=== PATIENT | male | born 1940 | race Hispanic/Latino ===

== ENCOUNTER 2018-04-14 19:17 | Observation (INO) | payer BC, MEDICARE ==
--- NOTE | 2018-04-14 20:52 | ED PDOC ---
HPI: Trauma/Fall - HPI Time Seen by Provider: 04/14/18 20:01 Chief Complaint (Nursing): Trauma Chief Complaint (Provider): Trauma History Per: EMS History/Exam Limitations: clinical condition Onset/Duration Of Symptoms: Sudden Onset Injury Occurred (Timing): Just Before Arrival Additional Complaint(s): 77 year old male arrives to ED via EMS for an evaluation of a fall with possible head injury prior to arrival. History is limited as patient is a poor historian. Per EMS, patient has Hx of alcohol abuse and fell a couple days ago and wanted to be evaluated today. As per patient, he reports he fell a few weeks ago but did not seek medical attention at the time, however, his neighbors encouraged him to come to ED, prompting today's visit. Patient gives vague details about fall, stating that he jumped on an item he cannot recall subsequently falling backwards. He is uncertain if he lost consciousness or sustained a head injury at the time. PCP: Dr. Rory Vega Past Medical History Reviewed: Nursing Documentation, Vital Signs Vital Signs: Last Vital Signs Temp 98.4 F 04/14/18 19:28 Pulse 116 H 04/14/18 19:28 Resp 20 04/14/18 19:28 BP 172/85 H 04/14/18 19:28 Pulse Ox 98 04/14/18 19:28 - Medical History PMH: Arthritis, HTN, Hyperlipidemia, Chronic Kidney Disease - Family History Family History: States: Unknown Family Hx - Home Medications Home Medications: Ambulatory Orders Medication Instructions Recorded Atenolol 50 mg PO DAILY 04/14/18 RX: Valsartan [Diovan] 80 mg PO DAILY 04/14/18 levETIRAcetam [Keppra] 500 mg PO DAILY 04/14/18 - Allergies Allergies/Adverse Reactions: Allergies Allergy/AdvReac Type Severity Reaction Status Date / Time No Known Allergies Allergy Verified 04/14/18 19:27 Review of Systems Review Of Systems: ROS cannot be obtained secondary to pt's inabilty to answer questions. Physical Exam - Reviewed Nursing Documentation Reviewed: Yes Vital Signs Reviewed: Yes - Physical Exam Appears: Positive for: No Acute Distress Head Exam: Positive for: ATRAUMATIC, NORMAL INSPECTION, NORMOCEPHALIC Skin: Positive for: Normal Color Eye Exam: Positive for: EOMI, Normal appearance, PERRL ENT: Positive for: Normal ENT Inspection Neck: Positive for: Normal Cardiovascular/Chest: Positive for: Regular Rate, Rhythm Respiratory: Positive for: Normal Breath Sounds. Negative for: Respiratory Distress Gastrointestinal/Abdominal: Positive for: Normal Exam Back: Positive for: Vertebral Tenderness (lumbar diffusely). Negative for: Decreased ROM, Other (step-off, ecchymosis, or pressure ulcers) Extremity: Positive for: Normal ROM (upper/lower). Negative for: Deformity Neurologic/Psych: Positive for: Alert, Mood/Affect (dishelved). Negative for: Oriented (to time), Motor/Sensory Deficits, Aphasia - Laboratory Results Result Diagrams: 04/15/18 05:40 04/15/18 05:40 - ECG O2 Sat by Pulse Oximetry: 98 (RA) Pulse Ox Interpretation: Normal Medical Decision Making Medical Decision Making: Initial Impression: Back injury, possible head injury s/p fall Differential Diagnosis: Dehydration, AMS Initial Plan: * CT head without contrast * CT lumbar without contrast * Labs * XR pelvis Time: 2039 --Patient's daughter, Sierra, arrives at bedside from [place] to provide additional medical history. 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 She reports that patient was walking to a deli to purchase alcohol when neighbors witnessed him fall in the hallway, prompting 911 call. Patient additionally had a fall a few weeks ago, as well. Time: 2224 --CT lumbar spine Findings: The lumbar vertebral bodies are in satisfactory positioning and alignment. No fractures or dislocations are demonstrated. Intervertebral disc spaces are moderately narrowed at all levels. Disc osteophyte complexes and disc bulges are seen at all levels from L2 through S1 There is no evidence of facet subluxation. The neural foramen appear grossly patent. The spinal canal demonstrates normal caliber and contour without evidence of spinal stenosis. The surrounding soft tissues are within normal limits. Impression: 1. No acute fracture or traumatic injury. 2. Multilevel degenerative disc disease with spondylosis throughout the lumbar spine as described. 3. Disc osteophyte complexes and disc bulges at L2/L3, L3/L4, L4/L5, and L5/S1. No evidence of central canal stenosis. Time: 2233 --CT brain FINDINGS: there is been further maturation of the left temporal occipital infarct since the study of 07/06/15. No acute intracranial hemorrhage, midline shift, or mass effect VENTRICLES: No hydrocephalus. ORBITS: The orbits are unremarkable. SINUSES AND MASTOIDS: The paranasal sinuses and mastoid air cells are clear. BONES: No fracture. SOFT TISSUES: Unremarkable. MISCELLANEOUS: CT of the head Protocol: Multiple axial CT images obtained with 5 mm slice thickness were obtained through the head without administration of contrast. DLP 903.33 IMPRESSION: 1. CT of the head 2. Headache. 3. Protocol: Multiple axial CT images obtained with 5 mm slice thickness were obtained through the head without administration of contrast. DLP 903.33 4. Findings: there is been further maturation of the left temporal occipital infarct since the study of 07/06/15. 5. No acute intracranial hemorrhage, midline shift, or mass effect Scribe Attestation: Documented by Cristy Kenny, acting as a scribe for Marie Elliott MD. Provider Scribe Attestation: All medical record entries made by the Scribe were at my direction and personally dictated by me. I have reviewed the chart and agree that the record accurately reflects my personal performance of the history, physical exam, me dical decision making, and the department course for this patient. I have also personally directed, reviewed, and agree with the discharge instructions and disposition. Disposition - Clinical Impression Clinical Impression: ARF (acute renal failure), Dehydration, UTI (urinary tract infection) - Patient ED Disposition Is Patient to be Admitted: Yes Discussed With : Cici Dee Doctor Will See Patient In The: ED Counseled Patient/Family Regarding: Studies Performed, Diagnosis - Disposition Disposition Time: 22:45 Condition: FAIR - Pt Status Changed To: Hospital Disposition Of: Observation - POA Present On Arrival: Falls Or Trauma
[2018-04-14 21:18] LABS: BASO # 0.1 K/uL (0.0-0.2); BASO % 0.8 % (0.0-2.0); EOS % 0.5 % (0.0-4.0); HEMOGLOBIN 12.9 g/dL (12.0-18.0); LYMPH % 12.5 % (20.0-40.0); MEAN CELL VOLUME 100.1 fl (80.0-94.0); MEAN CORPUSCULAR HEMOGLOBIN 33.3 pg (27.0-31.0); MEAN CORPUSCULAR HGB CONC 33.3 g/dL (33.0-37.0); MEAN PLATELET VOLUME 7.6 fl (7.2-11.7); MONO # 0.6 K/uL (0.0-0.8); MONO % 7.9 % (0.0-10.0); NEUT # 6.2 K/uL (1.8-7.0); NEUT % 78.3 % (50.0-75.0); RBC 3.86 Mil/uL (4.40-5.90); RED CELL DISTRIBUTION WIDTH 13.6 % (11.5-14.5); WHITE BLOOD COUNT 7.9 K/uL (4.8-10.8)
[2018-04-14] MEDS ORDERED: Multivitamin (MVI) 10 ML, Thiamine 100 MG, Folic Acid 1 MG in Dextrose 5%/0.45% NS 1,00... IV ONE (21:27)
[2018-04-14 21:45] LABS: SQUAMOUS EPITHIAL < 1 /hpf (0-5); URINE BACTERIA MANY (<OCC); URINE BILIRUBIN NEGATIVE (NEGATIVE); URINE BLOOD NEGATIVE (NEGATIVE); URINE CLARITY CLOUDY (Clear); URINE COLOR YELLOW (YELLOW); URINE GLUCOSE (UA) NEG (Normal); URINE LEUKOCYTE ESTERASE LARGE Leu/uL (Negative); URINE PROTEIN NEGATIVE (NEGATIVE)
[2018-04-14 21:48] LABS: CALCIUM 9.9 mg/dL (8.4-10.2)
[2018-04-14] MEDS ORDERED: cefTRIAXone (Rocephin) 1 gm Inj ONE (23:21)
--- NOTE | 2018-04-14 23:26 | CP.PCM.HP ---
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 Per daughter present by bedside, pt experienced a fall earlier today, he was seen by his neighbors falling in the hallway and found to be sitting down after ground level fall. Per pt, he did not obtain any trauma to the head or pass out. Of note, pt has had multiple episodes of fall in the past, mostly recently fell 2 weeks ago, was found by son on the floor of his bathroom. Pt lives by himself, children check up on him at times, per daughter pt gets meal on wheels and goes to the grocery store to get food but regularly misses meals, chronic ETOH use (daily). Pt endorsing low back pain, moderate, non-radiating. Denies chest pain, dyspnea, palpatations, abdominal pain, n/v/d/c, dysuria, chills and fevers. PMHx: HTN, HLD, dementia CVA x 2 (hemorrhagic stroke in the past) SurgHx: Denies FHx: hx of HTN in family SHx: ETOH daily for 40+yrs (currently 3+beers/wine daily), hx of smoking (50+yrs, quit 20 yrs ago), denies illicit drug use Allergies: NKDA Daughter by bedside, Little Balbuena RN lives in [place] Son lives in [place], but on Vacation in [place]. Son has power of [employer] Full code Present on Admission - Present on Admission Any Indicators Present on Admission: No Review of Systems - Constitutional Constitutional: absent: Chills, Fever - Cardiovascular Cardiovascular: absent: Chest Pain, Dyspnea - Respiratory Respiratory: absent: Cough, Dyspnea - Gastrointestinal Gastrointestinal: absent: Abdominal Pain, Diarrhea, Nausea, Vomiting - Genitourinary Genitourinary: absent: Dysuria, Urinary Frequency - Musculoskeletal Musculoskeletal: Back Pain Past Patient History - Past Medical History & Family History Past Medical History?: Yes - Past Social History Smoking Status: Former Smoker Alcohol: > 2 Drinks/Day Drugs: Denies Home Situation {Lives}: Alone - CARDIAC Hx Hypertension: Yes - PULMONARY Hx Respiratory Disorders: No - NEUROLOGICAL Hx Neurological Disorder: Yes HX Cerebrovascular Accident: Yes (Multiple, 1 hemmorhagic 8 yrs ago) Hx Seizures: Yes (secondary to ETOH withdrawl (per daughter)) Other/Comment: Hx Wernicke Encephalopathy - HEENT Hx HEENT Problems: Yes Hx Cataracts: Yes - RENAL Hx Chronic Kidney Disease: Yes - ENDOCRINE/METABOLIC Hx Endocrine Disorders: No - HEMATOLOGICAL/ONCOLOGICAL Hx Blood Disorders: No - INTEGUMENTARY Hx Dermatological Problems: Yes Other/Comment: Hx Sacral Pressure sore - MUSCULOSKELETAL/RHEUMATOLOGICAL Hx Arthritis: Yes - GASTROINTESTINAL Hx Gastrointestinal Disorders: No - GENITOURINARY/GYNECOLOGICAL Hx Genitourinary Disorders: Yes Hx Urinary Tract Infection: Yes - PSYCHIATRIC Hx Substance Use: No - SURGICAL HISTORY Hx Surgeries: No - ANESTHESIA Hx Anesthesia: No Meds Allergies/Adverse Reactions: Allergies Allergy/AdvReac Type Severity Reaction Status Date / Time No Known Allergies Allergy Verified 04/14/18 19:27 Physical Exam - Constitutional Appears: No Acute Distress, Other (looks comfortable ) - Head Exam Head Exam: NORMAL INSPECTION - Eye Exam Eye Exam: EOMI, Normal appearance - ENT Exam ENT Exam: Mucous Membranes Dry - Respiratory Exam Respiratory Exam: Clear to Auscultation Bilateral, NORMAL BREATHING PATTERN. absent: Wheezes - Cardiovascular Exam Cardiovascular Exam: Tachycardia, REGULAR RHYTHM, +S1, +S2 - GI/Abdominal Exam GI & Abdominal Exam: Normal Bowel Sounds, Soft. absent: Distended, Guarding, Tenderness - Extremities Exam Extremities exam: Positive for: normal inspection. Negative for: calf tenderness, pedal edema Additional comments: LLE less strength when compared to RLE Upper extremity 5/5 b/l - Back Exam Back exam: NORMAL INSPECTION. absent: CVA tenderness (L), CVA tenderness (R) - Neurological Exam Neurological exam: Alert Additional comments: Awake, alert and oriented to person only On prompting was able to answer president but unable to answer year/month/day, or place - Psychiatric Exam Psychiatric exam: Normal Affect - Skin Additional comments: No contusions noted in head neck or exposed skin Results - Vital Signs Recent Vital Signs: Last Vital Signs Temp 98.9 F 04/14/18 20:45 Pulse 117 H 04/14/18 20:45 Resp 20 04/14/18 20:45 BP 165/96 H 04/14/18 20:45 Pulse Ox 98 04/14/18 22:38 - Labs Result Diagrams: 04/14/18 21:14 04/14/18 21:14 Labs: Laboratory Results - last 24 hr 04/14/18 04/14/18 04/14/18 21:14 21:14 21:25 WBC 7.9 RBC 3.86 L Hgb 12.9 Hct 38.7 MCV 100.1 H D MCH 33.3 H MCHC 33.3 RDW 13.6 Plt Count 338 D MPV 7.6 Neut % (Auto) 78.3 H Lymph % (Auto) 12.5 L [place] % (Auto) 7.9 Eos % (Auto) 0.5 Baso % (Auto) 0.8 Neut # (Auto) 6.2 Lymph # (Auto) 1.0 [place] # (Auto) 0.6 Eos # (Auto) 0.0 Baso # (Auto) 0.1 Sodium 137 Potassium 4.1 Chloride 99 Carbon Dioxide 25 Anion Gap 17 BUN 26 H Creatinine 1.7 H Est GFR ( Amer) 47 Est GFR (Non-Af Amer) 39 Random Glucose 125 H Calcium 9.9 Total Creatine Kinase 63 Urine Color Yellow Urine Clarity Cloudy Urine pH 5.0 Ur Specific Jones 1.015 Urine Protein Negative Urine Glucose (UA) Neg Urine Ketones Trace Urine Blood Negative Urine Nitrate Negative Urine Bilirubin Negative Urine Urobilinogen 2.0 Ur Leukocyte Esterase Large Urine RBC (Auto) 3 Urine Microscopic WBC 68 H Ur Squamous Epith Cells < 1 Urine Bacteria Many H Hyaline Casts 11-20 H Assessment & Plan - Assessment and Plan (Free Text) Assessment: Assessment/Plan: 77 YO Male with PMHx of HTN, HLD, dementia, CVA x 2 (hemorrhagic stroke in the past), seizure in the past, ETOH abuse is admitted for STEVEN, UTI, fall. STEVEN/Dehydration -acute on chronic renal disease -worsening renal functions from 2016 -EKG sinus tachycardia without any acute ST or T wave changes -likely 2/2 to UTI, dehydration and low PO intake -c/w IVFs -diet as tolerated -follow up AM renal functions UTI -UA sig for Large leukes and bacteria -asymptomatic -Ucx, bcx pending -c/w rocephin -c/w IVFs ETOH abuse -last ETOH intake earlier this AM or last night? -urine ETOH <10, macrocytic RBC -s/p librium 50mg PO in ED -itrate librium daily -start folate, thiamine and b12 -CIWA protocol -Ativan prn -CIWA on admission 7 Multiple falls/Dementia -chronic -likely 2/2 to ETOH use and CVA in past -weakness in the LLE when compared to the RLE -CT lumbar spine: No acute fracture or traumatic injury. Multilevel degenerative disc disease noted. -CT head: there is been further maturation of the left temporal occipital infarct since the study of 07/06/15. No acute intracranial hemorrhage, midline shift, or mass effect -pelvic XR pending -follow up official CT readings -c/w with vitamins -PT consulted, follow up recs HTN/HLD -chronic -c/w with home meds; valsartan changed to Losartan -c/t monitor and adjust as needed -HLD not on any medications given age >75 Hx of Seizure -c/w Keppra DVT proplyx -hold anticoagulation for now given hx of frequent falls and hemorrhagic stroke -start SCDs for now
[2018-04-15 06:30] LABS: BASO # 0.1 K/uL (0.0-0.2); BASO % 1.1 % (0.0-2.0); EOS # 0.1 K/uL (0.0-0.7); EOS % 2.1 % (0.0-4.0); HEMOGLOBIN 11.8 g/dL (12.0-18.0); LYMPH # 1.6 K/uL (1.0-4.3); LYMPH % 25.5 % (20.0-40.0); MEAN CELL VOLUME 101.3 fl (80.0-94.0); MEAN CORPUSCULAR HEMOGLOBIN 33.9 pg (27.0-31.0); MEAN CORPUSCULAR HGB CONC 33.5 g/dL (33.0-37.0); MEAN PLATELET VOLUME 7.9 fl (7.2-11.7); MONO # 0.5 K/uL (0.0-0.8); MONO % 8.6 % (0.0-10.0); NEUT % 62.7 % (50.0-75.0); NRBC % 0.2 % (0.0-0.0); RBC 3.48 Mil/uL (4.40-5.90); RED CELL DISTRIBUTION WIDTH 13.3 % (11.5-14.5); WHITE BLOOD COUNT 6.4 K/uL (4.8-10.8)
[2018-04-15 06:37] LABS: CALCIUM 9.4 mg/dL (8.4-10.2)
--- NOTE | 2018-04-15 08:24 | CT ---
Date of service: 04/14/2018 PROCEDURE: CT HEAD WITHOUT CONTRAST. HISTORY: fall COMPARISON: None available. TECHNIQUE: Axial computed tomography images were obtained through the head/brain without intravenous contrast. Radiation dose: Total exam DLP = 903.33 mGy-cm. This CT exam was performed using one or more of the following dose reduction techniques: Automated exposure control, adjustment of the mA and/or kV according to patient size, and/or use of iterative reconstruction technique. FINDINGS: HEMORRHAGE: No intracranial hemorrhage. BRAIN: No mass effect or edema. The prior cerebral atrophy has further increased. Periventricular high microvascular ischemic changes have also progressed. The left Occipital lobe infarct and associated encephalomalacia changes have progressed. There is also a interval progressive left frontal lobe infarct encephalomalacia changes which have progressed since the prior exam. VENTRICLES: The ventricular prominence is greater than it was before. CALVARIUM: Unremarkable. PARANASAL SINUSES: Unremarkable as visualized. No significant inflammatory changes. MASTOID AIR CELLS: Unremarkable as visualized. No inflammatory changes. OTHER FINDINGS: None. IMPRESSION: Interval progressive cerebral atrophy and interval progressive ventriculomegaly. Interval progressive deep white matter microvascular ischemic changes. Interval progressive/maturation of infarct changes with gliosis left occipital lobe most notably and to lesser extent left frontal lobe. No interval hemorrhage or mass effect noted. Did the maturation findings of the left occipital lobe chronic infarct and socially encephalomalacia changes were referenced on the preliminary [place] rad report. The other findings were not. Comments: Study marked for PA review .
[2018-04-15] MEDS: Multivitamin With Minerals Tab PO SCH (08:49)
[2018-04-15] MEDS ORDERED: Thiamine 100 mg/ml Inj IM SCH (09:00)
[2018-04-15] MEDS ORDERED: Thiamine 100 mg/ml Inj IM ONE (09:00)
--- NOTE | 2018-04-15 09:04 | RAD ---
Date of service: 04/14/2018 PROCEDURE: Radiographs of the pelvis. HISTORY: fall COMPARISON: None. FINDINGS: BONES: Pelvic Bones: Unremarkable. Hips: Bilateral moderate osteoarthrosis JOINTS: Sacroiliac Joints: Unremarkable. Pubic Symphysis: Unremarkable. OTHER FINDINGS: Generalized osteopenia. Nonspecific central lower abdominal borderline dilated small bowel loops. L4-5 and L5-S1 degenerative disc disease and spondylosis. Bilateral groin/upper thigh extensive arterial vascular calcifications present IMPRESSION: No fractures appreciated. Senescent changes as above Bilateral groin/upper thigh extensive arterial vascular calcifications present.
--- NOTE | 2018-04-15 10:38 | CARD ---
APPROVED REPORT Date of service: 04/14/2018 EKG Measurement Heart [id number] <Conclusion> Sinus tachycardia with 1st degree AV block Left axis deviation Abnormal ECG
--- NOTE | 2018-04-15 11:25 | CT ---
Date of service: 04/14/2018 PROCEDURE: CT Lumbar Spine without contrast HISTORY: back pain fall COMPARISON: None available. TECHNIQUE: Axial computed tomography images were obtained of the lumbar spine without the use of intravenous contrast. Coronal and sagittal reformatted images were created and reviewed. Radiation dose: Total exam DLP = 831.18 mGy-cm. This CT exam was performed using one or more of the following dose reduction techniques: Automated exposure control, adjustment of the mA and/or kV according to patient size, and/or use of iterative reconstruction technique. FINDINGS: VERTEBRAE: No fracture. Normal alignment. DISCS/SPINAL CANAL/NEURAL FORAMINA: L1-2: Spondylosis and disc space narrowing. No high-grade spinal stenosis L2-3: Spondylosis and disc space narrowing. No high-grade spinal stenosis L3-4: Spondylosis and disc space narrowing. Prominent calcified ossified disc margin further compromising the central canal mild spinal stenosis-AP dimension approximately 1 cm present. Appearance compatible with an osteophyte disc complex here. Short pedicle status here also possible L4-5: Spondylosis and disc space narrowing. No high-grade central spinal stenosis. Mild moderate left lateral recess/proximal foraminal stenosis endplate spurring and mild facet hypertrophic changes contributing factors. L5-S1: Spondylosis and disc space narrowing. No high-grade spinal stenosis At every lumbar level multilevel diffuse disc bulging is present PARASPINAL SOFT TISSUES: Unremarkable. OTHER FINDINGS: Perception of the asymmetrically prominent right kidney yet incompletely visualized on these images. Atherosclerotic vascular calcifications present. No aortic aneurysm seen There is presence of aortic atherosclerotic calcification and mural plaque on cross sectional studies. IMPRESSION: No fracture or subluxation. Senescent changes (multilevel degenerative disc disease with spondylosis) as above with the aforementioned effects Asymmetrically prominent right kidney incompletely visualized-indeterminate assessment. Consider renal ultrasound to further evaluate Comments: Concordant results (preliminary interpretation) provided by [facility]ar[facility] guarding lumbar findings. The aforementioned right kidney findings were not mention on the preliminary report, but these may or may not be borne out as normal or abnormal upon additional imaging. Consider renal ultrasound to further evaluate Comments: Study marked for PA review .
[2018-04-15 13:51] VITALS: BMI 24.3
--- NOTE | 2018-04-15 14:25 | CP.PCM.PN ---
<Nilda Weiss - Last Filed: 04/15/18 14:31> Subjective - Date & Time of Evaluation Date of Evaluation: 04/15/18 Time of Evaluation: 08:00 - Subjective Subjective: Pt seen and examined this morning. Pt was AOx2, slightly confused. Ucx not collected as patient did nt alert nurse and went to bathroom. He states he does not recollect falling or the events prior. States he occasionally feels off balanced and does not use his walker at home most times. Denies dysuria/fever/chills, urinary incontinence or retention, or headache. Denies feeling anxious or any hallucinations. Objective - Vital Signs/Intake and Output Vital Signs (last 24 hours): Temp Pulse Resp BP Pulse Ox 97.9 F 86 19 149/68 98 04/15/18 07:51 04/15/18 10:17 04/15/18 07:51 04/15/18 08:49 04/15/18 10:17 - Medications Medications: Current Medications Acetaminophen (Tylenol 325mg Tab) 650 mg PO Q6 PRN PRN Reason: Pain, Mild (1-3) Acetaminophen (Tylenol 325mg Tab) 650 mg PO Q6 PRN PRN Reason: Fever >100.4 F Atenolol (Tenormin) 50 mg PO DAILY [facility] Last Admin: 04/15/18 08:49 Dose: 50 mg Chlordiazepoxide (Librium) 25 mg PO QID [facility] Stop: 04/15/18 22:01 Last Admin: 04/15/18 12:50 Dose: 25 mg Chlordiazepoxide (Librium) 10 mg PO QID [facility] Stop: 04/16/18 22:01 Cyanocobalamin (Vitamin B12 1000 Mcg Tab) 1,000 mcg PO DAILY [facility] Folic Acid (Folic Acid) 1 mg PO DAILY [facility] Last Admin: 04/15/18 08:49 Dose: 1 mg Ceftriaxone Sodium 1 gm/ (Sodium Chloride) 100 mls @ 100 mls/hr IVPB DAILY [facility]; Protocol Last Admin: 04/15/18 08:48 Dose: 100 mls/hr Levetiracetam (Keppra) 500 mg PO DAILY [facility] Last Admin: 04/15/18 08:49 Dose: 500 mg Lorazepam (Ativan) 2 mg IVP Q6 PRN PRN Reason: Symptoms of alcohol withdrawl Multivitamins/Minerals (Therapeutic-M Tab) 1 tab PO DAILY [facility] Last Admin: 04/15/18 08:49 Dose: 1 tab Thiamine HCl (Vitamin B1 Tab) 100 mg PO DAILY [facility] - Labs Labs: 04/15/18 05:40 04/15/18 05:40 - Constitutional Appears: Non-toxic, No Acute Distress - Eye Exam Eye Exam: Normal appearance - ENT Exam ENT Exam: Mucous Membranes Moist - Neck Exam Neck Exam: Full ROM. absent: Meningismus - Respiratory Exam Respiratory Exam: Clear to Ausculation Bilateral. absent: Accessory Muscle Use, Decreased Breath Sounds, Rales, Wheezes - Cardiovascular Exam Cardiovascular Exam: REGULAR RHYTHM, +S1, +S2. absent: Murmur - GI/Abdominal Exam GI & Abdominal Exam: Soft, Normal Bowel Sounds. absent: Tenderness - Back Exam Back Exam: absent: CVA tenderness (L), CVA tenderness (R) - Neurological Exam Neurological Exam: Alert, Awake. absent: Oriented x3 Neuro motor strength exam: Left Upper Extremity: 5, Right Upper Extremity: 5, Left Lower Extremity: 4, Right Lower Extremity: 4 - Psychiatric Exam Psychiatric exam: Flat Affect, Normal Affect - Skin Skin Exam: Normal Color Assessment and Plan - Assessment and Plan (Free Text) Assessment: 77 YO Male with PMHx of HTN, HLD, dementia, CVA x 2 (hemorrhagic stroke in the past), seizure in the past, ETOH abuse is admitted for STEVEN, UTI, fall. STEVEN/Dehydration -Crea 1.6, GFR 42 (baseline GFR >60) -acute on chronic renal disease -likely Pre-renal 2/2 dehydration and low PO intake -C/W IV hydration: D5/NS at 100cc -will avoid nephrotoxic agents -follow up AM renal functions UTI -UA sig for Large leukes and bacteria -asymptomatic -Ucx, bcx pending -c/w rocephin -c/w IVFs -Lumbar CT noted assymetrical right kidney, renal u/s ordered for further evaluation Anemia -Hemoglobin 11.9 -MCV 101.3 -Macrocytic anemia, likely alcohol abuse vs folate deficiency in setting of poor diet -B12 411. S/P 1000mcg B12 injection once on admission -Folate pending ETOH abuse -CIWA 0 today; 7 on admission -last ETOH intake 2 days ago as per patient -urine ETOH <10 -s/p librium 50mg PO in ED -Librium taper: 25 qid today, 10mg qid tomorrow. -C/W banana bag-- folate, thiamine and b12 -[facility] protocol -Watch for DT -Ativan 2mg q6 prn Multiple falls/Dementia -Chronic, uses walker -likely 2/2 to active ETOH abuse vs gait instability -weakness in the LLE when compared to the RLE -CT lumbar spine: No acute fracture or traumatic injury. Multilevel degenerative disc disease noted. -CT head: there is been further maturation of the left temporal occipital infarct since the study of 07/06/15. No acute intracranial hemorrhage, midline shift, or mass effect. Progressive cerebral atrophy and ventriculomegaly -pelvic XR- no acute fractures -Lumbar CT readings-no fractures, asymmetrical right kidney, poorly visualized -PT consulted- recommended Subacute rehab 3-5x/week for Gait training; noted BLE weakness HTN/HLD -chronic -c/w with home meds; valsartan changed to Losartan -c/t monitor and adjust as needed -HLD not on any medications given age >75 Hx of Seizure -c/w Keppra DVT proplyx -hold anticoagulation for now given hx of frequent falls and hemorrhagic stroke -start SCDs for now Diet -Regular -Ensure for supplement <Verenice Villa - Last Filed: 04/15/18 18:10> Objective - Vital Signs/Intake and Output Vital Signs (last 24 hours): Temp Pulse Resp BP Pulse Ox 96.9 F L 61 20 123/80 95 04/15/18 16:37 04/15/18 16:37 04/15/18 16:37 04/15/18 16:37 04/15/18 16:37 - Medications Medications: Current Medications Acetaminophen (Tylenol 325mg Tab) 650 mg PO Q6 PRN PRN Reason: Pain, Mild (1-3) Acetaminophen (Tylenol 325mg Tab) 650 mg PO Q6 PRN PRN Reason: Fever >100.4 F Atenolol (Tenormin) 50 mg PO DAILY [facility] Last Admin: 04/15/18 08:49 Dose: 50 mg Chlordiazepoxide (Librium) 25 mg PO QID [facility] Stop: 04/15/18 22:01 Last Admin: 04/15/18 16:07 Dose: 25 mg Chlordiazepoxide (Librium) 10 mg PO QID [facility] Stop: 04/16/18 22:01 Cyanocobalamin (Vitamin B12 1000 Mcg Tab) 1,000 mcg PO DAILY [facility] Folic Acid (Folic Acid) 1 mg PO DAILY [facility] Last Admin: 04/15/18 08:49 Dose: 1 mg Ceftriaxone Sodium 1 gm/ (Sodium Chloride) 100 mls @ 100 mls/hr IVPB Q12 [facility]; Protocol Dextrose/Sodium Chloride (Dextrose 5%/0.9% Ns 1000 Ml) 1,000 mls @ 100 mls/hr IV .Q10H [facility] Stop: 04/16/18 15:01 Last Admin: 04/15/18 16:07 Dose: 100 mls/hr Levetiracetam (Keppra) 500 mg PO DAILY [facility] Last Admin: 04/15/18 08:49 Dose: 500 mg Lorazepam (Ativan) 2 mg IVP Q6 PRN PRN Reason: Symptoms of alcohol withdrawl Multivitamins/Minerals (Therapeutic-M Tab) 1 tab PO DAILY [facility] Last Admin: 04/15/18 08:49 Dose: 1 tab Tamsulosin HCl (Flomax) 0.4 mg PO DAILY [facility] Last Admin: 04/15/18 16:13 Dose: 0.4 mg Thiamine HCl (Vitamin B1 Tab) 200 mg PO DAILY [facility] - Labs Labs: 04/15/18 05:40 04/15/18 05:40 Attending/Attestation - Attestation I have personally seen and examined this patient.: Yes I have fully participated in the care of the patient.: Yes I have reviewed all pertinent clinical information, including history, physical exam and plan: Yes Notes (Text): Additional Note: UTI -Increase IV Ceftriaxone to q12 - Urine c/s STEVEN on CKD stage III - Renal Sonogram Fall - check Hip xray and CXR - PT eval, plan for d/c to [facility]CU/[facility] for Rehab
[2018-04-15] MEDS: Dextrose 5%/0.9% NS 1,000 ML IV SCH (16:07)
[2018-04-15 22:54] LABS: FOLATE > 20.0 ng/mL
[2018-04-16] MEDS: Dextrose 5%/0.9% NS 1,000 ML IV SCH ×3 (01:00→11:03)
[2018-04-16 06:14] LABS: HEMOGLOBIN 11.6 g/dL (12.0-18.0); MEAN CORPUSCULAR HEMOGLOBIN 33.4 pg (27.0-31.0); MEAN CORPUSCULAR HGB CONC 33.4 g/dL (33.0-37.0); RBC 3.46 Mil/uL (4.40-5.90); RED CELL DISTRIBUTION WIDTH 13.6 % (11.5-14.5); WHITE BLOOD COUNT 7.7 K/uL (4.8-10.8)
[2018-04-16 06:39] LABS: CALCIUM 9.2 mg/dL (8.4-10.2)
--- NOTE | 2018-04-16 07:27 | CP.PCM.PN ---
Objective - Vital Signs/Intake and Output Vital Signs (last 24 hours): Temp Pulse Resp BP Pulse Ox 97.3 F L 58 L 20 161/78 H 100 04/16/18 01:00 04/16/18 01:00 04/16/18 01:00 04/16/18 01:00 04/16/18 01:00 - Medications Medications: Current Medications Acetaminophen (Tylenol 325mg Tab) 650 mg PO Q6 PRN PRN Reason: Pain, Mild (1-3) Acetaminophen (Tylenol 325mg Tab) 650 mg PO Q6 PRN PRN Reason: Fever >100.4 F Atenolol (Tenormin) 50 mg PO DAILY [facility] Last Admin: 04/15/18 08:49 Dose: 50 mg Chlordiazepoxide (Librium) 10 mg PO QID [facility] Stop: 04/16/18 22:01 Cyanocobalamin (Vitamin B12 1000 Mcg Tab) 1,000 mcg PO DAILY [facility] Folic Acid (Folic Acid) 1 mg PO DAILY [facility] Last Admin: 04/15/18 08:49 Dose: 1 mg Ceftriaxone Sodium 1 gm/ (Sodium Chloride) 100 mls @ 100 mls/hr IVPB Q12 [facility]; Protocol Last Admin: 04/15/18 21:30 Dose: 100 mls/hr Dextrose/Sodium Chloride (Dextrose 5%/0.9% Ns 1000 Ml) 1,000 mls @ 100 mls/hr IV .Q10H [facility] Stop: 04/16/18 15:01 Last Admin: 04/16/18 05:11 Dose: 100 mls/hr Levetiracetam (Keppra) 500 mg PO DAILY [facility] Last Admin: 04/15/18 08:49 Dose: 500 mg Lorazepam (Ativan) 2 mg IVP Q6 PRN PRN Reason: Symptoms of alcohol withdrawl Last Admin: 04/16/18 03:27 Dose: 2 mg Multivitamins/Minerals (Therapeutic-M Tab) 1 tab PO DAILY [facility] Last Admin: 04/15/18 08:49 Dose: 1 tab Tamsulosin HCl (Flomax) 0.4 mg PO DAILY [facility] Last Admin: 04/15/18 16:13 Dose: 0.4 mg Thiamine HCl (Vitamin B1 Tab) 200 mg PO DAILY [facility] - Labs Labs: 04/16/18 05:50 04/16/18 05:50
[2018-04-16] MEDS ORDERED: Thiamine 100 mg/ml Inj IM ONE (08:00)
[2018-04-16] MEDS ORDERED: Thiamine 500 MG in Sodium Chloride 0.9% 100 ML IV ONE (10:00)
[2018-04-16] MEDS: Multivitamin With Minerals Tab PO SCH (10:20)
--- NOTE | 2018-04-16 10:52 | RAD ---
PROCEDURE: Radiographs of the pelvis and bilateral hips HISTORY: fall COMPARISON: None. FINDINGS: BONES: Pelvis: Unremarkable. Right hip:Unremarkable. Left hip:Unremarkable. JOINTS: Right hip: Unremarkable. Left hip: Unremarkable. Sacroiliac Joints: Unremarkable. Pubic symphysis: Unremarkable. SOFT TISSUES: Normal. OTHER FINDINGS: None. IMPRESSION: Unremarkable radiographs of the hips and pelvis.
--- NOTE | 2018-04-16 10:55 | RAD ---
Date of service: 04/16/2018 HISTORY: fall, PNA COMPARISON: 03/14/2016 TECHNIQUE: Chest PA and lateral FINDINGS: LUNGS: No active pulmonary disease. PLEURA: No significant pleural effusion identified. No pneumothorax apparent. CARDIOVASCULAR: No aortic atherosclerotic calcification present. Normal cardiac size. No pulmonary vascular congestion. OSSEOUS STRUCTURES: No significant abnormalities. VISUALIZED UPPER ABDOMEN: Normal. OTHER FINDINGS: None. IMPRESSION: No active disease.
--- NOTE | 2018-04-16 11:27 | US ---
Date of service: 04/16/2018 PROCEDURE: Ultrasound of the Kidneys HISTORY: STEVEN, CKD, UTI COMPARISON: None available. TECHNIQUE: Sonogram of the kidneys. FINDINGS: RIGHT KIDNEY: Measures: 9.9 cm. Normal in size, contour and echogenicity. No stone, solid mass lesion or hydronephrosis visualized. LEFT KIDNEY: Measures: 11.3 cm. Normal in size, contour and echogenicity. No stone, solid mass lesion or hydronephrosis visualized. OTHER FINDINGS: Please note that the examination is somewhat limited by the patient's inability to fully cooperate for this evaluation IMPRESSION: Unremarkable renal sonogram.
[2018-04-16] MEDS ORDERED: Enoxaparin 40 mg Syringe SC SCH (14:15)
--- NOTE | 2018-04-16 14:37 | CP.PCM.DIS ---
<Pipe Amanda - Last Filed: 04/16/18 15:26> Provider - Provider Date of Admission: 04/14/18 22:41 Attending physician: Cici Dee MD Consults: 04/15/18 03:15 Nursing Referral for Wound Care Routine Comment: Physician Instructions: Reason For Exam: reynaldo scale protocol Social Work Referral Routine Comment: discharge planning Physician Instructions: Reason For Exam: discharge planning 04/15/18 03:17 Case Management Referral Routine Comment: Physician Instructions: Reason For Exam: Reason for Referral: Discharge Planning Time Spent in preparation of Discharge (in minutes): 20 Diagnosis - Discharge Diagnosis (1) UTI (urinary tract infection) Status: Acute (2) ARF (acute renal failure) Status: Resolved (3) Alcoholism Status: Chronic Hospital Course - Lab Results Lab Results: Micro Results 04/14/18 20:25 Blood-Venous Blood Culture - Preliminary NO GROWTH AFTER 24 HOURS 04/14/18 23:05 Blood-Venous Blood Culture - Preliminary NO GROWTH AFTER 24 HOURS Most Recent Lab Values WBC 7.7 K/uL (4.8-10.8) 04/16/18 05:50 RBC 3.46 Mil/uL (4.40-5.90) L 04/16/18 05:50 Hgb 11.6 g/dL (12.0-18.0) L 04/16/18 05:50 Hct 34.6 % (35.0-51.0) L 04/16/18 05:50 MCV 100.0 fl (80.0-94.0) H 04/16/18 05:50 MCH 33.4 pg (27.0-31.0) H 04/16/18 05:50 MCHC 33.4 g/dL (33.0-37.0) 04/16/18 05:50 RDW 13.6 % (11.5-14.5) 04/16/18 05:50 Plt Count 299 K/uL (130-400) 04/16/18 05:50 MPV 7.9 fl (7.2-11.7) 04/15/18 05:40 Neut % (Auto) 62.7 % (50.0-75.0) 04/15/18 05:40 Lymph % (Auto) 25.5 % (20.0-40.0) 04/15/18 05:40 Hayes % (Auto) 8.6 % (0.0-10.0) 04/15/18 05:40 Eos % (Auto) 2.1 % (0.0-4.0) 04/15/18 05:40 Baso % (Auto) 1.1 % (0.0-2.0) 04/15/18 05:40 Neut # (Auto) 4.0 K/uL (1.8-7.0) 04/15/18 05:40 Lymph # (Auto) 1.6 K/uL (1.0-4.3) 04/15/18 05:40 Hayes # (Auto) 0.5 K/uL (0.0-0.8) 04/15/18 05:40 Eos # (Auto) 0.1 K/uL (0.0-0.7) 04/15/18 05:40 Baso # (Auto) 0.1 K/uL (0.0-0.2) 04/15/18 05:40 Sodium 138 mmol/l (132-148) 04/16/18 05:50 Potassium 3.6 MMOL/L (3.6-5.0) 04/16/18 05:50 Chloride 106 mmol/L (98-107) 04/16/18 05:50 Carbon Dioxide 25 mmol/L (22-30) 04/16/18 05:50 Anion Gap 11 (10-20) 04/16/18 05:50 BUN 23 mg/dl (9-20) H 04/16/18 05:50 Creatinine 1.4 mg/dl (0.8-1.5) 04/16/18 05:50 Est GFR ( Amer) 59 04/16/18 05:50 Est GFR (Non-Af Amer) 49 04/16/18 05:50 Random Glucose 103 mg/dL (75-110) 04/16/18 05:50 Calcium 9.2 mg/dL (8.4-10.2) 04/16/18 05:50 Total Creatine Kinase 63 U/L (55-170) 04/14/18 21:14 Vitamin B12 411 pg/mL (239-931) 04/15/18 05:40 Folate > 20.0 ng/mL 04/15/18 05:40 TSH 3rd Generation 2.91 mIU/ML (0.46-4.68) 04/15/18 05:40 Urine Color Yellow (YELLOW) 04/14/18 21:25 Urine Clarity Cloudy (Clear) 04/14/18 21:25 Urine pH 5.0 (5.0-8.0) 04/14/18 21:25 Ur Specific In[place] 1.015 (1.003-1.030) 04/14/18 21:25 Urine Protein Negative mg/dL (NEGATIVE) 04/14/18 21:25 Urine Glucose (UA) Neg mg/dL (Normal) 04/14/18 21:25 Urine Ketones Trace mg/dL (NEGATIVE) 04/14/18 21:25 Urine Blood Negative (NEGATIVE) 04/14/18 21: Urine Nitrate Negative (NEGATIVE) 04/14/18 21:25 Urine Bilirubin Negative (NEGATIVE) 04/14/18 21:25 Urine Urobilinogen 2.0 mg/dL (0.2-1.0) 04/14/18 21:25 Ur Leukocyte Esterase Large Jaylin/uL (Negative) 04/14/18 21:25 Urine RBC (Auto) 3 /hpf (0-3) 04/14/18 21:25 Urine Microscopic WBC 68 /hpf (0-5) H 04/14/18 21:25 Ur Squamous Epith Cells < 1 /hpf (0-5) 04/14/18 21:25 Urine Bacteria Many (<OCC) H 04/14/18 21:25 Hyaline Casts 11-20 /hpf (0-2) H 04/14/18 21:25 Alcohol, Quantitative < 10 mg/dl (0-10) 04/14/18 23:14 - Hospital Course Hospital Course: 77 yo male with pmh of HTN, HLD, dementia CVA x 2 (hemorrhagic stroke in the past-no residual weakness from the strokes per daughter), ETOH abuse, presented to [facility] ED after a fall. In ED patient was diagnosed with STEVEN, and UTI. Pt was admitted for further evaluation and treatment. In Floor patient received IVF, BC/UC was sent and started on IV Rocephin, and put on Ativan prn. Due patient extensive hx of falls, Ct scan of lumbar area and head were taken ( reading at end of page) Pt is seen and examined at bedside today. No acute event overnight. Pt will be discharged to Subacute rehab for further ABx ( ceftriaxone 1gm) treatment and Physical therapy. Pt chart, vitals and lab were reviewed STEVEN was corrected, UTI improving, vitals improving. Pt is stable to be discharged. CT lumbar spine: No acute fracture or traumatic injury. Multilevel degenerative disc disease noted. CT head: there is been further maturation of the left temporal occipital infarct since the study of 07/06/15. No acute intracranial hemorrhage, midline shift, or mass effect Pelvic XR- no acute fractures Lumbar CT readings-no fractures, asymmetrical right kidney, poorly visualiz Discharge Exam - Head Exam Head Exam: ATRAUMATIC, NORMAL INSPECTION, NORMOCEPHALIC - Eye Exam Eye Exam: EOMI, Normal appearance, PERRL Pupil Exam: NORMAL ACCOMODATION - ENT Exam ENT Exam: Normal Exam - Neck Exam Neck exam: Normal Inspection - Respiratory Exam Respiratory Exam: Clear to PA & Lateral, NORMAL BREATHING PATTERN, UNREMARKABLE - Cardiovascular Exam Cardiovascular Exam: REGULAR RHYTHM, +S1, +S2 - GI/Abdominal Exam GI & Abdominal Exam: Normal Bowel Sounds, Unremarkable - Extremities Exam Extremities exam: full ROM - Back Exam Back exam: NORMAL INSPECTION - Skin Skin Exam: Dry, Intact, Normal Color, Warm Discharge Plan - Discharge Medications Prescriptions: RX: cefTRIAXone 1 gm [Rocephin 1 gram IVPB (D5W)] 1 gm IVPB Q12 7 Days bag RX: Thiamine [Vitamin B1 Tab] 100 mg PO BID 30 Days tab - Follow Up Plan Condition: STABLE Disposition: TRANSF TO SNF Instructions: Dehydration, Adult (DC), Acute Kidney Failure (DC), Urinary Tract Infection in Men (DC) Referrals: Rory Sánchez MD [Family Provider] - <Verenice Villa - Last Filed: 04/16/18 18:11> Provider - Provider Date of Admission: 04/14/18 22:41 Attending physician: Cici Dee MD Consults: 04/15/18 03:15 Nursing Referral for Wound Care Routine Comment: Physician Instructions: Reason For Exam: reynaldo scale protocol Social Work Referral Routine Comment: discharge planning Physician Instructions: Reason For Exam: discharge planning 04/15/18 03:17 Case Management Referral Routine Comment: Physician Instructions: Reason For Exam: Reason for Referral: Discharge Planning Hospital Course - Lab Results Lab Results: Micro Results 04/14/18 20:25 Blood-Venous Blood Culture - Preliminary NO GROWTH AFTER 24 HOURS 04/14/18 23:05 Blood-Venous Blood Culture - Preliminary NO GROWTH AFTER 24 HOURS Most Recent Lab Values WBC 7.7 K/uL (4.8-10.8) 04/16/18 05:50 RBC 3.46 Mil/uL (4.40-5.90) L 04/16/18 05:50 Hgb 11.6 g/dL (12.0-18.0) L 04/16/18 05:50 Hct 34.6 % (35.0-51.0) L 04/16/18 05:50 MCV 100.0 fl (80.0-94.0) H 04/16/18 05:50 MCH 33.4 pg (27.0-31.0) H 04/16/18 05:50 MCHC 33.4 g/dL (33.0-37.0) 04/16/18 05:50 RDW 13.6 % (11.5-14.5) 04/16/18 05:50 Plt Count 299 K/uL (130-400) 04/16/18 05:50 MPV 7.9 fl (7.2-11.7) 04/15/18 05:40 Neut % (Auto) 62.7 % (50.0-75.0) 04/15/18 05:40 Lymph % (Auto) 25.5 % (20.0-40.0) 04/15/18 05:40 Hayes % (Auto) 8.6 % (0.0-10.0) 04/15/18 05:40 Eos % (Auto) 2.1 % (0.0-4.0) 04/15/18 05:40 Baso % (Auto) 1.1 % (0.0-2.0) 04/15/18 05:40 Neut # (Auto) 4.0 K/uL (1.8-7.0) 04/15/18 05:40 Lymph # (Auto) 1.6 K/uL (1.0-4.3) 04/15/18 05:40 Hayes # (Auto) 0.5 K/uL (0.0-0.8) 04/15/18 05:40 Eos # (Auto) 0.1 K/uL (0.0-0.7) 04/15/18 05:40 Baso # (Auto) 0.1 K/uL (0.0-0.2) 04/15/18 05:40 Sodium 138 mmol/l (132-148) 04/16/18 05:50 Potassium 3.6 MMOL/L (3.6-5.0) 04/16/18 05:50 Chloride 106 mmol/L (98-107) 04/16/18 05:50 Carbon Dioxide 25 mmol/L (22-30) 04/16/18 05:50 Anion Gap 11 (10-20) 04/16/18 05:50 BUN 23 mg/dl (9-20) H 04/16/18 05:50 Creatinine 1.4 mg/dl (0.8-1.5) 04/16/18 05:50 Est GFR ( Amer) 59 04/16/18 05:50 Est GFR (Non-Af Amer) 49 04/16/18 05:50 Random Glucose 103 mg/dL (75-110) 04/16/18 05:50 Calcium 9.2 mg/dL (8.4-10.2) 04/16/18 05:50 Total Creatine Kinase 63 U/L (55-170) 04/14/18 21:14 Vitamin B12 411 pg/mL (239-931) 04/15/18 05:40 Folate > 20.0 ng/mL 04/15/18 05:40 TSH 3rd Generation 2.91 mIU/ML (0.46-4.68) 04/15/18 05:40 Urine Color Yellow (YELLOW) 04/14/18 21:25 Urine Clarity Cloudy (Clear) 04/14/18 21:25 Urine pH 5.0 (5.0-8.0) 04/14/18 21:25 Ur Specific In[place] 1.015 (1.003-1.030) 04/14/18 21:25 Urine Protein Negative mg/dL (NEGATIVE) 04/14/18 21:25 Urine Glucose (UA) Neg mg/dL (Normal) 04/14/18 21:25 Urine Ketones Trace mg/dL (NEGATIVE) 04/14/18 21:25 Urine Blood Negative (NEGATIVE) 04/14/18 21:25 Urine Nitrate Negative (NEGATIVE) 04/14/18 21:25 Urine Bilirubin Negative (NEGATIVE) 04/14/18 21:25 Urine Urobilinogen 2.0 mg/dL (0.2-1.0) 04/14/18 21:25 Ur Leukocyte Esterase Large Jaylin/uL (Negative) 04/14/18 21:25 Urine RBC (Auto) 3 /hpf (0-3) 04/14/18 21:25 Urine Microscopic WBC 68 /hpf (0-5) H 04/14/18 21:25 Ur Squamous Epith Cells < 1 /hpf (0-5) 04/14/18 21:25 Urine Bacteria Many (<OCC) H 04/14/18 21:25 Hyaline Casts 11-20 /hpf (0-2) H 04/14/18 21:25 Alcohol, Quantitative < 10 mg/dl (0-10) 04/14/18 23:14 Attending/Attestation - Attestation I have personally seen and examined this patient.: Yes I have fully participated in the care of the patient.: Yes I have reviewed all pertinent clinical information, including history, physical exam and plan: Yes Notes (Text): UTI -cont IV Ceftriaxone to q12 x 7 more days - will d/c to [facility] to continue abx -Blood c/s negative - Urine culture pending ( however urine was collected after pt had received 3 doses of IV abx) Acute Kidney Injury on CKD stage III, improved like due to Dehydration - Renal Sonogram normal Fall Pt has had hx of fall in the past - CT of head : no hemorrhage , Encephalomalacia and old infarct noted - Xrays did not show any fracture -able to move all extremities, no new neuro deficit - PT consulted- rec [facility] - will d/c to [facility] for further PT Alcoholism Pt stable, no active signs of withdrawal Librium 10 mg q 6 taper off slowly Thiamine IV given, cont PO Thiamine 100 mg bid d/c to [facility] for IV abx and Physical therapy
[2018-04-16 22:04] VITALS: BP 163/88; PULSE 62; RESP 19; TEMP 98.1; O2SAT 96
== END 2018-04-16 22:25 ==
LOC: H.ER 19:17 → H.ERHOLD 22:41 → H.MEDSURG1 04-15 01:16
PROVIDERS: ADMIT Internal Medicine; ATTEND Internal Medicine
DX: N39.0 Urinary tract infection, site not specified (principal); M51.36 Other intervertebral disc degeneration, lumbar region; M47.816 Spondylosis without myelopathy or radiculopathy, lumbar region; I12.9 Hypertensive chronic kidney disease with stage 1 through stage 4 chronic kidney disease, or unspecified chronic kidney disease; E78.5 Hyperlipidemia, unspecified; N17.9 Acute kidney failure, unspecified; Z86.73 Personal history of transient ischemic attack (TIA), and cerebral infarction without residual deficits; Z87.891 Personal history of nicotine dependence; E86.0 Dehydration; D53.9 Nutritional anemia, unspecified; N18.3 Chronic kidney disease, stage 3 (moderate); F10.20 Alcohol dependence, uncomplicated; Z91.81 History of falling; M19.90 Unspecified osteoarthritis, unspecified site; F03.90 Unspecified dementia, unspecified severity, without behavioral disturbance, psychotic disturbance, mood disturbance, and anxiety; Y90.0 Blood alcohol level of less than 20 mg/100 ml
CPT/HCPCS: 36415; 70450; 71046; 72131; 72170; 73522; 76770; 80048; 81003; 82550; 82607; 82746; 84443; 85025; 85027; 87040; 87086; 93005; 96365; 97162; 99285; G0378; G0480; G8978; G8979; J0696; J1650; J2060; J3411; J3420; J7042

== ENCOUNTER 2018-04-17 04:01 | Observation (INO) | payer MEDICARE ==
[2018-04-17 04:01] VITALS: BMI 24.3
--- NOTE | 2018-04-17 04:53 | ED PDOC ---
HPI: Head Injury Time Seen by Provider: 04/17/18 04:09 Chief Complaint (Nursing): Trauma History Per: EMS History/Exam Limitations: other (dementia) Additional Complaint(s): Hx of HTN, HLD, CVA, Dementia, ETOH abuse presenting with fall, patient was just discharged from hospital to [facility] for IV Abx and rehab after having STEVEN and UTI, patient was not being monitored properly and fell out of bed, sustaining contusion to R side of head. Patient has no recollection of the event, demented at baseline. PMD: Dr. 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 (per daughter)) - Family History Family History: States: Unknown Family Hx - Home Medications Home Medications: Ambulatory Orders Medication Instructions Recorded Atenolol 50 mg PO DAILY 04/14/18 Cyanocobalamin [Vitamin B12 1000 1,000 mcg PO DAILY tab 04/16/18 mcg Tab] Enoxaparin [Lovenox] 40 mg SC DAILY syr 04/16/18 Folic Acid 1 mg PO DAILY tab 04/16/18 Losartan [Cozaar] 50 mg PO DAILY tab 04/16/18 Multimineral/Multivitamin 1 tab PO DAILY tab 04/16/18 [Therapeutic-M Tab] Tamsulosin [Flomax] 0.4 mg PO DAILY cap 04/16/18 Thiamine [Vitamin B1 Tab] 100 mg PO BID 30 Days tab 04/16/18 cefTRIAXone 1 gm [Rocephin 1 gram 1 gm IVPB Q12 7 Days bag 04/16/18 IVPB (D5W)] chlordiazePOXIDE [Librium] 10 mg PO QID cap 04/16/18 levETIRAcetam [Keppra] 500 mg PO BID tab 04/16/18 - Allergies Allergies/Adverse Reactions: Allergies Allergy/AdvReac Type Severity Reaction Status Date / Time No Known Allergies Allergy Verified 04/14/18 19:27 Review of Systems Review Of Systems: ROS cannot be obtained secondary to pt's inabilty to answer questions. Physical Exam - Reviewed Nursing Documentation Reviewed: Yes Vital Signs Reviewed: Yes - Physical Exam Appears: Positive for: Well, Non-toxic, No Acute Distress Head Exam: Positive for: NORMAL INSPECTION, NORMOCEPHALIC. Negative for: AT RAUMATIC (R sided frontal hematoma with skin tears, no definite laceration) Skin: Positive for: Normal Color, Warm, DRY Eye Exam: Positive for: EOMI, Normal appearance, PERRL ENT: Positive for: Normal ENT Inspection Neck: Positive for: Normal, Painless ROM, Supple. Negative for: Decreased ROM Cardiovascular/Chest: Positive for: Regular Rate, Rhythm Respiratory: Positive for: CNT, Normal Breath Sounds Gastrointestinal/Abdominal: Positive for: Normal Exam, Soft Back: Positive for: Normal Inspection Extremity: Positive for: Normal ROM, Other (Moving all extrem's normally, no hip tenderness). Negative for: Deformity Neurologic/Psych: Positive for: Alert, diagram clerk II-XII. Negative for: Oriented (Demented), Motor/Sensory Deficits - Laboratory Results Result Diagrams: 04/17/18 05:45 04/17/18 05:45 - ECG O2 Sat by Pulse Oximetry: 98 Pulse Ox Interpretation: Normal Medical Decision Making Medical Decision MakinAM Patient presenting with fall, on blood thinners --Will get CT head and neck --Xrays of hip and chest given fall 513 CT Head Findings: COMMENTS: Unchanged moderate chronic ischemic white matter disease. Unchanged multifocal chronic ischemic areas more prominent in the left temporal lobe. Interval appearance of 5.2 mm hyperdense focus in the right frontal subdural space. Interval appearance of right frontal subgaleal soft tissue hematoma. There is normal configuration of sella turcica. There is no mass effect or midline shift. No hydrocephalus is present. The ventricles are symmetrical. No abnormal calcifications are present. There is diffuse age-appropriate cerebellar and cerebral atrophy with proportionally dilated ventricles and cortical sulci. There are bilateral periventricular and subcortical white matter hypolucencies compatible with mild chronic microvascular disease. Otherwise, no significant focal abnormalities are seen either in the posterior fossa or supratentorial compartment. IMPRESSION: 1. Age-appropriate cerebellar and cerebral atrophy. 2. Moderate chronic microvascular disease. 3. Interval appearance of 5 mm hyperdense focus in the right frontal subdural space, probably acute hemorrhagic products. No associated mass effect, midline shift or brain herniation. [address] findings Findings: Moderate osteopenia of the bones. There are diffuse spondylotic changes. Findings are demonstrated by disc space narrowing, osteophyte formation and degenerative endplate changes. Facet joint arthropathy is noted. No fracture or dislocation is seen. No aggressive bone lesion is noted. Moderate multilevel degenerative disc disease more prominent from C3-C7. Impression: Spondylosis. Multilevel facet joint arthropathy. No acute bone pathology. 0627 Pelvis x-ray Findings: Mild osteopenia of the bones. There are changes of degenerative joint disease. No fracture or dislocation is seen. No aggressive bone lesion is noted. Impression: No radiographic evidence of an acute pathology. 7AM --Dr. Lopez recommends no specific intervention at this time --Will get repeat head CT 10AM --Dr. Corley stated to readmit to hospitalist service --Dr. Goyal aware Disposition - Clinical Impression Clinical Impression: Head injury - Patient ED Disposition Is Patient to be Admitted: Yes - Disposition Disposition Time: 07:00 Condition: FAIR Forms: [facility] ([place])
[2018-04-17 06:06] LABS: BASO # 0.1 K/uL (0.0-0.2); BASO % 1.1 % (0.0-2.0); EOS # 0.1 K/uL (0.0-0.7); EOS % 1.4 % (0.0-4.0); HEMOGLOBIN 12.3 g/dL (12.0-18.0); LYMPH # 0.9 K/uL (1.0-4.3); LYMPH % 9.6 % (20.0-40.0); MEAN CELL VOLUME 100.6 fl (80.0-94.0); MEAN CORPUSCULAR HEMOGLOBIN 33.6 pg (27.0-31.0); MEAN CORPUSCULAR HGB CONC 33.4 g/dL (33.0-37.0); MEAN PLATELET VOLUME 8.3 fl (7.2-11.7); MONO # 0.6 K/uL (0.0-0.8); MONO % 5.7 % (0.0-10.0); NEUT # 8.1 K/uL (1.8-7.0); NEUT % 82.2 % (50.0-75.0); PLATELET COUNT 332 K/uL (130-400); RBC 3.66 Mil/uL (4.40-5.90); RED CELL DISTRIBUTION WIDTH 13.9 % (11.5-14.5); WHITE BLOOD COUNT 9.8 K/uL (4.8-10.8)
[2018-04-17 06:22] LABS: ALB/GLOB RATIO 1.1 (1.0-2.1); ALBUMIN 3.8 g/dL (3.5-5.0); CALCIUM 10.4 mg/dL (8.4-10.2)
[2018-04-17 06:30] LABS: INR 1.1; PROTHROMBIN TIME 12.1 Seconds (9.8-13.1)
[2018-04-17 06:33] LABS: PARTIAL THROMBOPLASTIN TIME 34.3 Seconds (25.6-37.1)
--- NOTE | 2018-04-17 08:03 | CP.PCM.HP ---
History of Present Illness - History of Present Illness History of Present Illness: CC: s/p fall, head trauma HPI: 77 Y/o Male with PMHx of HTN, HLD, dementia CVA x 2 (hemorrhagic stroke in the past-no residual weakness from the strokes per daughter), ETOH abuse, and baseline dementia brought to ED from [facility] after sustaining a fall with subsequent head trauma. Pt does not recall events prior. Hx taken from ED documentation as patient was lethargic. Of note, pt was recently discharged from [facility] yesterday after he was brought in after a fall and treated for dehydra tion/STEVEN, and UTI. He was discharged on Rocephin 1gm daily, Librium and flomax. PMHx: HTN, HLD, dementia CVA x 2 (hemorrhagic stroke in the past) SurgHx: Denies FHx: hx of HTN in family SHx: ETOH daily for 40+yrs (currently 3+beers/wine daily), hx of smoking (50+yrs, quit 20 yrs ago), denies illicit drug use Allergies: NKDA Daughter by bedside, Little Balbuena RN lives in [place] Son lives in [place], but on Vacation in [place]. Son has power of Nascar Driver Full code ED Course: -Pt noted to have large frontal scalp swelling and laceration on right forehead -Head CT, non contrast: 5mm hyperdense focus in the right frontal subdural space, probably acute hemorrhagic products, no associated mass effect, midline shift or brain herniation. Age related cerebellar and cerebral atrophy -Hip Xrays- no evidence of acute pathology -Cervical Spine CT- no acute bony pathology -Neurosurgery consulted- as per ED Attending, Dr. Lopez recommends no specific intervention at this time. Repeat Head CT at 10am Full code Present on Admission - Present on Admission Any Indicators Present on Admission: No Past Patient History - Past Medical History & Family History Past Medical History?: Yes - Past Social History Smoking Status: Former Smoker - CARDIAC Hx Hypertension: Yes - PULMONARY Hx Respiratory Disorders: No - NEUROLOGICAL Hx Seizures: Yes (secondary to ETOH withdrawl (per daughter)) - HEENT Hx HEENT Problems: Yes Hx Cataracts: Yes - RENAL Hx Chronic Kidney Disease: Yes - ENDOCRINE/METABOLIC Hx Endocrine Disorders: No - HEMATOLOGICAL/ONCOLOGICAL Hx Blood Disorders: No - INTEGUMENTARY Hx Dermatological Problems: Yes Other/Comment: Hx Sacral Pressure sore - MUSCULOSKELETAL/RHEUMATOLOGICAL Hx Arthritis: Yes - GASTROINTESTINAL Hx Gastrointestinal Disorders: No - GENITOURINARY/GYNECOLOGICAL Hx Genitourinary Disorders: Yes Hx Urinary Tract Infection: Yes - PSYCHIATRIC Hx Psychophysiologic Disorder: No Hx Substance Use: No - SURGICAL HISTORY Hx Surgeries: No - ANESTHESIA Hx Anesthesia: No Meds Allergies/Adverse Reactions: Allergies Allergy/AdvReac Type Severity Reaction Status Date / Time No Known Allergies Allergy Verified 04/14/18 19:27 Physical Exam - Constitutional Appears: No Acute Distress - Head Exam Head Exam: absent: ATRAUMATIC Additional comments: Right frontal forehead- 3 to 4 cm laceration w/o active bleeding, surounding swelling and ecchymosis - Eye Exam Eye Exam: EOMI, Normal appearance, PERRL. absent: Conjunctival injection, Nystagmus, Periorbital swelling Pupil Exam: PERRL Additional comments: dried blood in right nare - ENT Exam ENT Exam: Mucous Membranes Moist - Neck Exam Neck exam: Positive for: Full Rom. Negative for: Normal Inspection - Respiratory Exam Respiratory Exam: Clear to Auscultation Bilateral. absent: Rales, Wheezes - Cardiovascular Exam Cardiovascular Exam: REGULAR RHYTHM, +S1, +S2. absent: Systolic Murmur - GI/Abdominal Exam GI & Abdominal Exam: Soft. absent: Distended, Tenderness Additional comments: No ecchymosis or signs of trauma - Extremities Exam Extremities exam: Positive for: normal capillary refill, normal inspection, pedal pulses present. Negative for: joint swelling, pedal edema - Back Exam Back exam: NORMAL INSPECTION - Neurological Exam Neurological exam: Alert (lethargic, able to answer with few words appropriately but falls asleep), Motor Sensory Deficit (no gross defecits, upper extremities equal strength ) - Expanded Neurological Exam Expanded Neurological exam: Memory Loss-Recent Event Patient oriented to: person, place Upper motor neuron: Pronator Drift: Normal Neuro motor strength exam: Left Upper Extremity: 5, Right Upper Extremity: 5 Coma Scale Eye Opening: SPONTANEOUS Coma Scale Motor Response: OBEYS COMMANDS - Psychiatric Exam Psychiatric exam: Normal Affect - Skin Skin Exam: Normal Color Results - Vital Signs Recent Vital Signs: Last Vital Signs Temp 97.7 F 04/17/18 06:55 Pulse 72 04/17/18 06:55 Resp 18 04/17/18 06:55 BP 147/83 04/17/18 06:55 Pulse Ox 98 11/30/18 07:07 - Labs Result Diagrams: 04/17/18 05:45 04/17/18 05:45 Labs: Laboratory Results - last 24 hr 04/17/18 04/17/18 04/17/18 05:45 05:45 05:45 WBC 9.8 RBC 3.66 L Hgb 12.3 Hct 36.9 MCV 100.6 H MCH 33.6 H MCHC 33.4 RDW 13.9 Plt Count 332 MPV 8.3 Neut % (Auto) 82.2 H Lymph % (Auto) 9.6 L Caswell % (Auto) 5.7 Eos % (Auto) 1.4 Baso % (Auto) 1.1 Neut # (Auto) 8.1 H Lymph # (Auto) 0.9 L Caswell # (Auto) 0.6 Eos # (Auto) 0.1 Baso # (Auto) 0.1 PT 12.1 INR 1.1 APTT 34.3 Sodium 141 Potassium 4.4 Chloride 110 H Carbon Dioxide 24 Anion Gap 11 BUN 19 Creatinine 1.4 Est GFR ( Amer) 59 Est GFR (Non-Af Amer) 49 Random Glucose 109 Calcium 10.4 H Total Bilirubin 0.4 AST 34 ALT 25 Alkaline Phosphatase 98 Total Protein 7.3 Albumin 3.8 Globulin 3.5 Albumin/Globulin Ratio 1.1 Blood Type Antibody Screen BBK History Checked 04/17/18 05:45 WBC RBC Hgb Hct MCV MCH MCHC RDW Plt Count MPV Neut % (Auto) Lymph % (Auto) Caswell % (Auto) Eos % (Auto) Baso % (Auto) Neut # (Auto) Lymph # (Auto) Caswell # (Auto) Eos # (Auto) Baso # (Auto) PT INR APTT Sodium Potassium Chloride Carbon Dioxide Anion Gap BUN Creatinine Est GFR ( Amer) Est GFR (Non-Af Amer) Random Glucose Calcium Total Bilirubin AST ALT Alkaline Phosphatase Total Protein Albumin Globulin Albumin/Globulin Ratio Blood Type A POSITIVE Antibody Screen Negative BBK History Checked No verified bt Assessment & Plan - Assessment and Plan (Free Text) Assessment: HPI: 77 Y/o Male with PMHx of HTN, HLD, dementia CVA x 2 (hemorrhagic stroke in the past-no residual weakness from the strokes per daughter), ETOH abuse, and baseline dementia brought to ED from [facility] after sustaining a fall with subsequent head trauma and head ct significant for 5mm hyperdense focus in the right frontal subdural space. Head Injury -S/P head trauma -CT findings of possible intracranial hemorhage, 5mm hyperdense -Neurosurgery on board,no surgical intervention at time of admission, repeat head CT this morning -Frequent neurochecks, q4 -Keep HOB elevated -Keep room dark and quiet S/P Fall -Pt has significant gait instability (chronic) and LE weakness as evaluated by PT prior to discharge -Likely fell while not being monitored careful at the rehab facility -PT to re-asess prior to discharge once cleared via neurosurgery UTI -Afebrile, no leukocytosis -c/w Rocephin for total 7 days (started 04/14). Day 3 today -Ucx no growth (but collected after receiving 2 days of ABX) Anemia -Hemoglobin 11.9 -MCV 101.3 -Macrocytic anemia, likely alcohol abuse vs folate deficiency in setting of poor diet -B12 411. S/P 1000mcg B12 injection once on admission -Folate normal ETOH abuse -CIWA 0 on admission -Watch for DT -Ativan 2mg q6 prn -C/W Thiamine, MV, and Folic Acid HTN/HLD -normotensive, will allow for permissive hypertensive, maintaining BP <180/100 -home antihypertensive meds held -HLD not on any medications given age >73 Hx of Seizure -c/w Keppra DVT ppx -hold anticoagulation for now given hemorrhagic brain bleed -start SCDs for now
[2018-04-17 08:36] LABS: EOSINOPHIL 2 % (0-7); LYMPHOCYTE 8 % (20-50); MONOCYTE 5 % (0-10); NEUTROPHIL 85 % (42-75); PLATELET ESTIMATE NORMAL (NORMAL); TOTAL CELLS COUNTED 100
[2018-04-17 08:37] LABS: ANISOCYTOSIS SLIGHT; OVALOCYTES MODERATE; TEARDROP CELLS SLIGHT
[2018-04-17 08:38] LABS: LARGE PLATELETS PRESENT
[2018-04-17] MEDS ORDERED: Multivitamin With Minerals Tab PO SCH (09:00)
[2018-04-17] MEDS ORDERED: cefTRIAXone IV 1 gm in Dextros 50 ML BAG IVPB SCH (09:00)
--- NOTE | 2018-04-17 10:29 | CP.PCM.PN ---
Subjective - Date & Time of Evaluation Date of Evaluation: 04/17/18 Time of Evaluation: 09:00 - Subjective Subjective: CC: s/p fall, head trauma HPI: 77 Y/o Male with PMHx of HTN, HLD, dementia CVA x 2 (hemorrhagic stroke in the past-no residual weakness from the strokes per daughter), ETOH abuse, and b aseline dementia brought to ED from [facility] after sustaining a fall with subsequent head trauma. Pt does not recall events prior. Hx taken from ED documentation as patient was lethargic. Of note, pt was recently discharged from [facility] yesterday after he was brought in after a fall and treated for dehydration/STEVEN, and UTI. He was discharged on Rocephin 1gm daily, Librium and flomax. PMHx: HTN, HLD, dementia CVA x 2 (hemorrhagic stroke in the past) SurgHx: Denies FHx: hx of HTN in family SHx: ETOH daily for 40+yrs (currently 3+beers/wine daily), hx of smoking (50+yrs, quit 20 yrs ago), denies illicit drug use Allergies: NKDA Daughter by bedside, Little Balbuena RN lives in [place] Son lives in [place], but on Vacation in [place]. Son has power of Screw Machine Setter Full code ED Course: -Pt noted to have large frontal scalp swelling and laceration on right forehead -Head CT, non contrast: 5mm hyperdense focus in the right frontal subdural space, probably acute hemorrhagic products, no associated mass effect, midline shift or brain herniation. Age related cerebellar and cerebral atrophy -Hip Xrays- no evidence of acute pathology -Cervical Spine CT- no acute bony pathology -Neurosurgery consulted- as per ED Attending, Dr. Lopez recommends no specific intervention at this time. Repeat Head CT at 10am Full code Objective - Vital Signs/Intake and Output Vital Signs (last 24 hours): Temp Pulse Resp BP Pulse Ox 97.4 F L 71 18 181/74 H 98 04/17/18 09:36 04/17/18 09:36 04/17/18 09:36 04/17/18 09:36 04/17/18 09:36 - Medications Medications: Current Medications Acetaminophen (Tylenol 325mg Tab) 650 mg PO Q6 PRN PRN Reason: Pain, Mild (1-3) Chlordiazepoxide (Librium) 10 mg PO QID [facility] Cyanocobalamin (Vitamin B12 1000 Mcg Tab) 1,000 mcg PO DAILY [facility] Folic Acid (Folic Acid) 1 mg PO DAILY [facility] Ceftriaxone Sodium 1 gm/ (Sodium Chloride) 100 mls @ 100 mls/hr IVPB Q12 [facility] Levetiracetam (Keppra) 500 mg PO BID [facility] Multivitamins/Minerals (Therapeutic-M Tab) 1 tab PO DAILY [facility] Thiamine HCl (Vitamin B1 Tab) 100 mg PO BID [facility] - Labs Labs: 04/17/18 05:45 04/17/18 05:45 PT 12.1 Seconds (9.8-13.1) 04/17/18 05:45 INR 1.1 04/17/18 05:45 APTT 34.3 Seconds (25.6-37.1) 04/17/18 05:45 - Constitutional Appears: No Acute Distress - Head Exam Additional comments: Right frontal forehead--3-4 cm laceration w/o active bleed, significant swelling. No other signs of trauma on the scalp. - Eye Exam Eye Exam: EOMI, Normal appearance. absent: Conjunctival injection, Nystagmus, Periorbital swelling, Scleral icterus Pupil Exam: PERRL - ENT Exam ENT Exam: Mucous Membranes Moist Additional comments: Right nostril- dried blood, nares in tact, no cartilage laxity - Neck Exam Neck Exam: Full ROM. absent: Meningismus, Tenderness - Respiratory Exam Respiratory Exam: Clear to Ausculation Bilateral. absent: Rales, Wheezes - Cardiovascular Exam Cardiovascular Exam: REGULAR RHYTHM, +S1, +S2. absent: Murmur - GI/Abdominal Exam GI & Abdominal Exam: Soft, Normal Bowel Sounds. absent: Tenderness - Exam Exam: absent: Scrotal Swelling External exam: absent: Ecchymosis - Extremities Exam Extremities Exam: Normal Capillary Refill. absent: Calf Tenderness, Joint Swelling, Tenderness - Back Exam Back Exam: NORMAL INSPECTION. absent: paraspinal tenderness - Neurological Exam Neurological Exam: Alert (Lethargic,arousable, able to say few sentences and respond appropriately but falls asleep). absent: Motor Sensory Deficit Neuro motor strength exam: Left Upper Extremity: 5, Right Upper Extremity: 5 - Psychiatric Exam Psychiatric exam: Normal Affect - Skin Skin Exam: Normal Color Assessment and Plan - Assessment and Plan (Free Text) Assessment: 77 Y/o Male with PMHx of HTN, HLD, dementia CVA x 2 (hemorrhagic stroke in the past-no residual weakness from the strokes per daughter), ETOH abuse, and baseline dementia brought to ED from [facility] after sustaining a fall with subsequent head trauma and head ct significant for 5mm hyperdense focus in the right frontal subdural space. #Head Injury -CT findings of possible intracranial hemorhage -Neurosurgery on board,no surgical intervention at time of admission, repeat head CT this morning -Frequent neurochecks, q4
--- NOTE | 2018-04-17 10:54 | CT ---
Date of service: 04/17/2018 PROCEDURE: CT Cervical Spine without contrast HISTORY: fall, on blood thinners COMPARISON: None available. TECHNIQUE: Axial computed tomography images were obtained of the cervical spine without the use of intravenous contrast. Coronal and sagittal reformatted images were created and reviewed. Radiation dose: Total exam DLP = 344.22 mGy-cm. This CT exam was performed using one or more of the following dose reduction techniques: Automated exposure control, adjustment of the mA and/or kV according to patient size, and/or use of iterative reconstruction technique. FINDINGS: VERTEBRAE: No fracture. Normal alignment is interrupted minimally by grade 1 spondylolisthesis with C5 slightly posterior to C6 on a degenerative basis. No suspicious, destructive bony lesion. [id number] multilevel cervical spondylosis. Diffuse facet joint degenerative changes are appreciated throughout. DISCS/SPINAL CANAL/NEURAL FORAMINA: At C2-3, borderline left but no right neural foraminal stenosis appreciated. Uncovertebral and facet joint degenerative arthropathy is appreciated slightly greater the left and right sides. No central canal stenosis. Minimal disc bulging noted. At C3-4, [id number] right and moderate left degenerative neural foraminal stenoses are identified. Minimal disc bulging is noted without central canal stenosis. At C4-5, mild bilateral degenerative neural foraminal stenoses are appreciated. No central canal stenosis. At C5-6, moderate bilateral neural foraminal stenoses are identified with spondylolisthesis and limited posterior osteophytic ridging resulting in mild central stenosis. At C6-7, moderate right and [id number] left degenerative neural foraminal stenoses are identified without central canal stenosis. At C7-T1 no central canal or neural foraminal stenosis appreciated. No gross disc herniation appreciated throughout the examination. PARASPINAL SOFT TISSUES: Unremarkable. OTHER FINDINGS: None. IMPRESSION: 1. No acute fracture or acute spondylolisthesis appreciated. Degenerative C5-6 spondylolisthesis, grade 1 mild central stenosis is identified. Moderate neural foraminal stenoses also evident. 2. Multilevel degenerative neural foraminal stenoses are identified seen worst at C5-6 as above. Preliminary report provided by [facility], 04/17/2018.
--- NOTE | 2018-04-17 11:03 | CT ---
Date of service: 04/17/2018 PROCEDURE: CT HEAD WITHOUT CONTRAST. HISTORY: fall, on blood thinners COMPARISON: Noncontrast head CT 04/14/2018. TECHNIQUE: Axial computed tomography images were obtained through the head/brain without intravenous contrast. Radiation dose: Total exam DLP = 1265.01 mGy-cm. This CT exam was performed using one or more of the following dose reduction techniques: Automated exposure control, adjustment of the mA and/or kV according to patient size, and/or use of iterative reconstruction technique. FINDINGS: HEMORRHAGE: Trace right frontal subdural hemorrhage in the interval, approximately 5 mm size. No additional intracranial hemorrhage appreciable. BRAIN: Diffuse cerebral atrophy chronic microangiopathy are reiterated. Small chronic left frontal lobar infarction again identified as well as larger left ARCHITECTURAL DESIGN LECTURER chronic infarct. No mass effect. Midline brain anatomy is stable. No suspicious extra-axial fluid collection appreciable. Punctate parenchymal calcification reiterated at right frontal gyrus laterally. VENTRICLES: Unremarkable. No hydrocephalus. CALVARIUM: No destructive bony lesion or displaced fracture identified including through the skullbase. Mild right frontal scalp hematoma identified PARANASAL SINUSES: Unremarkable as visualized. No significant inflammatory changes. MASTOID AIR CELLS: Unremarkable as visualized. No inflammatory changes. OTHER FINDINGS: None. IMPRESSION: 1. Trace right frontal subdural hematoma. No mass effect. No fracture identified throughout calvarium/skull base. Mild right frontal scalp hematoma noted. 2. Chronic infarcts left frontal lobe and temporooccipital distribution again evident. No CT sign of acute cortical edema to suggest acute or subacute infarction at this time. Clinically correlate further. 3. Age-related neuro degenerative changes reiterated. Concordant preliminary report from [facility], 04/17/2018.
[2018-04-17 12:05] VITALS: O2SAT 97
--- NOTE | 2018-04-17 12:51 | CP.PCM.CON ---
History of Present Illness - History of Present Illness History of Present Illness: Called at 6 am about Pt with negative head CT no recommendation no NRS involvement required Past Patient History - Past Medical History & Family History Past Medical History?: Yes - Past Social History Smoking Status: Former Smoker - CARDIAC Hx Hypertension: Yes - PULMONARY Hx Respiratory Disorders: No - NEUROLOGICAL Hx Seizures: Yes (secondary to ETOH withdrawl (per daughter)) - HEENT Hx HEENT Problems: Yes Hx Cataracts: Yes - RENAL Hx Chronic Kidney Disease: Yes - ENDOCRINE/METABOLIC Hx Endocrine Disorders: No - HEMATOLOGICAL/ONCOLOGICAL Hx Blood Disorders: No - INTEGUMENTARY Hx Dermatological Problems: Yes Other/Comment: Hx Sacral Pressure sore - MUSCULOSKELETAL/RHEUMATOLOGICAL Hx Arthritis: Yes - GASTROINTESTINAL Hx Gastrointestinal Disorders: No - GENITOURINARY/GYNECOLOGICAL Hx Genitourinary Disorders: Yes Hx Urinary Tract Infection: Yes - PSYCHIATRIC Hx Psychophysiologic Disorder: No Hx Substance Use: No - SURGICAL HISTORY Hx Surgeries: No - ANESTHESIA Hx Anesthesia: No Meds Allergies/Adverse Reactions: Allergies Allergy/AdvReac Type Severity Reaction Status Date / Time No Known Allergies Allergy Verified 04/14/18 19:27 - Medications Medications: Current Medications Acetaminophen (Tylenol 325mg Tab) 650 mg PO Q6 PRN PRN Reason: Pain, Mild (1-3) Atenolol (Tenormin) 50 mg PO DAILY [facility] Last Admin: 04/17/18 12:09 Dose: 50 mg Chlordiazepoxide (Librium) 10 mg PO QID [facility] Cyanocobalamin (Vitamin B12 1000 Mcg Tab) 1,000 mcg PO DAILY [facility] Last Admin: 04/17/18 12:10 Dose: 1,000 mcg Folic Acid (Folic Acid) 1 mg PO DAILY [facility] Last Admin: 04/17/18 12:10 Dose: 1 mg Ceftriaxone Sodium 1 gm/ (Sodium Chloride) 100 mls @ 100 mls/hr IVPB Q12 [facility] Last Admin: 04/17/18 12:15 Dose: 100 mls/hr Levetiracetam (Keppra) 500 mg PO BID [facility] Last Admin: 04/17/18 12:10 Dose: 500 mg Lorazepam (Ativan) 2 mg IVP Q6 PRN PRN Reason: signs of alcohol withdrawal Losartan Potassium (Cozaar) 50 mg PO DAILY [facility] Last Admin: 04/17/18 12:09 Dose: 50 mg Multivitamins/Minerals (Therapeutic-M Tab) 1 tab PO DAILY [facility] Last Admin: 04/17/18 12:10 Dose: 1 tab Thiamine HCl (Vitamin B1 Tab) 100 mg PO BID [facility] Last Admin: 04/17/18 12:10 Dose: 100 mg Results - Vital Signs Recent Vital Signs: Last Vital Signs Temp 98.1 F 04/17/18 12:04 Pulse 62 04/17/18 12:09 Resp 18 04/17/18 12:04 BP 134/76 04/17/18 12:09 Pulse Ox 97 04/17/18 12:04 - Labs Result Diagrams: 04/17/18 05:45 04/17/18 05:45 Labs: Laboratory Results - last 24 hr 04/17/18 04/17/18 04/17/18 05:45 05:45 05:45 WBC 9.8 RBC 3.66 L Hgb 12.3 Hct 36.9 MCV 100.6 H MCH 33.6 H MCHC 33.4 RDW 13.9 Plt Count 332 MPV 8.3 Neut % (Auto) 82.2 H Lymph % (Auto) 9.6 L [place] % (Auto) 5.7 Eos % (Auto) 1.4 Baso % (Auto) 1.1 Neut # (Auto) 8.1 H Lymph # (Auto) 0.9 L [place] # (Auto) 0.6 Eos # (Auto) 0.1 Baso # (Auto) 0.1 Neutrophils % (Manual) 85 H Lymphocytes % (Manual) 8 L Monocytes % (Manual) 5 Eosinophils % (Manual) 2 Platelet Estimate Normal Large Platelets Present Anisocytosis (manual) Slight Tear Drop Cells Slight Ovalocytes Moderate PT 12.1 INR 1.1 APTT 34.3 Sodium 141 Potassium 4.4 Chloride 110 H Carbon Dioxide 24 Anion Gap 11 BUN 19 Creatinine 1.4 Est GFR ( Amer) 59 Est GFR (Non-Af Amer) 49 Random Glucose 109 Calcium 10.4 H Total Bilirubin 0.4 AST 34 ALT 25 Alkaline Phosphatase 98 Total Protein 7.3 Albumin 3.8 Globulin 3.5 Albumin/Globulin Ratio 1.1 Blood Type Antibody Screen BBK History Checked 04/17/18 05:45 WBC RBC Hgb Hct MCV MCH MCHC RDW Plt Count MPV Neut % (Auto) Lymph % (Auto) [place] % (Auto) Eos % (Auto) Baso % (Auto) Neut # (Auto) Lymph # (Auto) [place] # (Auto) Eos # (Auto) Baso # (Auto) Neutrophils % (Manual) Lymphocytes % (Manual) Monocytes % (Manual) Eosinophils % (Manual) Platelet Estimate Large Platelets Anisocytosis (manual) Tear Drop Cells Ovalocytes PT INR APTT Sodium Potassium Chloride Carbon Dioxide Anion Gap BUN Creatinine Est GFR ( Amer) Est GFR (Non-Af Amer) Random Glucose Calcium Total Bilirubin AST ALT Alkaline Phosphatase Total Protein Albumin Globulin Albumin/Globulin Ratio Blood Type A POSITIVE Antibody Screen Negative BBK History Checked No verified bt
--- NOTE | 2018-04-17 14:12 | CP.PCM.DIS ---
Provider - Provider Date of Admission: 04/17/18 06:35 Attending physician: Jordan Goyal Consults: 04/17/18 06:37 Neuro Surgery Consult Stat Comment: Consulting Provider: Duane Alston Consulting Physician: Duane Alston Reason for Consult: possible subdural Time Spent in preparation of Discharge (in minutes): 35 Diagnosis - Discharge Diagnosis (1) Subdural hematoma Status: Acute (2) Head trauma Status: Acute Hospital Course - Lab Results Lab Results: Most Recent Lab Values WBC 9.8 K/uL (4.8-10.8) 04/17/18 05:45 RBC 3.66 Mil/uL (4.40-5.90) L 04/17/18 05:45 Hgb 12.3 g/dL (12.0-18.0) 04/17/18 05:45 Hct 36.9 % (35.0-51.0) 04/17/18 05:45 MCV 100.6 fl (80.0-94.0) H 04/17/18 05:45 MCH 33.6 pg (27.0-31.0) H 04/17/18 05:45 MCHC 33.4 g/dL (33.0-37.0) 04/17/18 05:45 RDW 13.9 % (11.5-14.5) 04/17/18 05:45 Plt Count 332 K/uL (130-400) 04/17/18 05:45 MPV 8.3 fl (7.2-11.7) 04/17/18 05:45 Neut % (Auto) 82.2 % (50.0-75.0) H 04/17/18 05:45 Lymph % (Auto) 9.6 % (20.0-40.0) L 04/17/18 05:45 [place] % (Auto) 5.7 % (0.0-10.0) 04/17/18 05:45 Eos % (Auto) 1.4 % (0.0-4.0) 04/17/18 05:45 Baso % (Auto) 1.1 % (0.0-2.0) 04/17/18 05:45 Neut # (Auto) 8.1 K/uL (1.8-7.0) H 04/17/18 05:45 Lymph # (Auto) 0.9 K/uL (1.0-4.3) L 04/17/18 05:45 [place] # (Auto) 0.6 K/uL (0.0-0.8) 04/17/18 05:45 Eos # (Auto) 0.1 K/uL (0.0-0.7) 04/17/18 05:45 Baso # (Auto) 0.1 K/uL (0.0-0.2) 04/17/18 05:45 Neutrophils % (Manual) 85 % (42-75) H 04/17/18 05:45 Lymphocytes % (Manual) 8 % (20-50) L 04/17/18 05:45 Monocytes % (Manual) 5 % (0-10) 04/17/18 05:45 Eosinophils % (Manual) 2 % (0-7) 04/17/18 05:45 Platelet Estimate Normal (NORMAL) 04/17/18 05:45 Large Platelets Present 04/17/18 05:45 Anisocytosis (manual) Slight 04/17/18 05:45 Tear Drop Cells Slight 04/17/18 05:45 Ovalocytes Moderate 04/17/18 05:45 PT 12.1 Seconds (9.8-13.1) 04/17/18 05:45 INR 1.1 04/17/18 05:45 APTT 34.3 Seconds (25.6-37.1) 04/17/18 05:45 Sodium 141 mmol/l (132-148) 04/17/18 05:45 Potassium 4.4 MMOL/L (3.6-5.0) 04/17/18 05:45 Chloride 110 mmol/L (98-107) H 04/17/18 05:45 Carbon Dioxide 24 mmol/L (22-30) 04/17/18 05:45 Anion Gap 11 (10-20) 04/17/18 05:45 BUN 19 mg/dl (9-20) 04/17/18 05:45 Creatinine 1.4 mg/dl (0.8-1.5) 04/17/18 05:45 Est GFR ( Amer) 59 04/17/18 05:45 Est GFR (Non-Af Amer) 49 04/17/18 05:45 Random Glucose 109 mg/dL (75-110) 04/17/18 05:45 Calcium 10.4 mg/dL (8.4-10.2) H 04/17/18 05:45 Total Bilirubin 0.4 mg/dl (0.2-1.3) 04/17/18 05:45 AST 34 U/L (17-59) 04/17/18 05:45 ALT 25 U/L (21-72) 04/17/18 05:45 Alkaline Phosphatase 98 U/L (38-126) 04/17/18 05:45 Total Protein 7.3 G/DL (6.3-8.2) 04/17/18 05:45 Albumin 3.8 g/dL (3.5-5.0) 04/17/18 05:45 Globulin 3.5 gm/dL (2.2-3.9) 04/17/18 05:45 Albumin/Globulin Ratio 1.1 (1.0-2.1) 04/17/18 05:45 Blood Type A POSITIVE 04/17/18 05:45 Antibody Screen Negative 04/17/18 05:45 BBK History Checked No verified bt 04/17/18 05:45 - Hospital Course Hospital Course: 77 Y/o Male with PMHx of HTN, HLD, dementia 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 He was found on CT scan to have trace right frontal subdural hematoma (no mass effect or fracture) He was evaluated by neurosurgery, Dr. Munoz, who stated no surgical intervention needed. Pt was observed overnight with frequent neuro checks. He was slightly lethargic but otherwise, no neurological defecits were noted. Pt had a frontal scalp hematoma that was cleaned and steri strips were applied. He was stable for discharge with recommendation to continue Rocephin for remainder of 7 course (for UTI in prior admission). Discharge Exam - Head Exam Head Exam: absent: ATRAUMATIC Additional comments: Right frontal forehead- 3 to 4 cm laceration w/o active bleeding, surounding swelling and ecchymosis. Dressing applied- clean and dry. - Eye Exam Eye Exam: Normal appearance - ENT Exam ENT Exam: Mucous Membranes Moist - Neck Exam Neck exam: Full Rom - Respiratory Exam Respiratory Exam: Clear to PA & Lateral. absent: Rales, Wheezes - Cardiovascular Exam Cardiovascular Exam: REGULAR RHYTHM, +S1, +S2. absent: Systolic Murmur - GI/Abdominal Exam GI & Abdominal Exam: Normal Bowel Sounds, Soft. absent: Distended, Tenderness - Neurological Exam Neurological exam: Alert Additional comments: Oriented x2 as per baseline. No gross motor and sensory deficits. - Psychiatric Exam Psychiatric exam: Normal Affect - Skin Skin Exam: Normal Color Discharge Plan - Follow Up Plan Condition: FAIR Disposition: REHAB FACILITY/REHAB UNIT
--- NOTE | 2018-04-17 14:56 | RAD ---
Date of service: 04/17/2018 HISTORY: fall COMPARISON: None available. FINDINGS: LUNGS: Borderline patchy density right perihilar region with remaining lung clark clear once again. PLEURA: No significant pleural effusion identified, no pneumothorax apparent. CARDIOVASCULAR: No aortic atherosclerotic calcification present. Normal cardiac size. No pulmonary vascular congestion. OSSEOUS STRUCTURES: Nondisplaced fractures of the left 5th and 6th ribs are suspected laterally. Clinically correlate further. VISUALIZED UPPER ABDOMEN: Normal. OTHER FINDINGS: None. IMPRESSION: Borderline patchy infiltrate right perihilar region. Nondisplaced left lateral 5th and 6th rib fractures suspected.
--- NOTE | 2018-04-17 15:04 | RAD ---
Date of service: 04/17/2018 PROCEDURE: Radiographs of the pelvis. HISTORY: fall COMPARISON: None. FINDINGS: BONES: There is no fracture of the pelvic ring grossly or the visualized bilateral proximal femora. Left greater trochanter is only partially captured. No destructive bony lesion identified throughout. Diffuse osteopenia suggests osteoporosis however. Iliac bones and sacrum appear intact as imaged as well as the pubic bones. JOINTS: Moderate degenerative cortical sclerosis and limited osteophyte formation is seen with the bilateral hip joints. Sacroiliac Joints: Moderate degenerative cortical sclerosis appreciate related to the bilateral sacroiliac joints. Pubic Symphysis: Unremarkable. OTHER FINDINGS: None. IMPRESSION: No acute fracture appreciable throughout the pelvic ring as imaged. Pubic symphysis appears intact. Diffuse osteopenia suggests osteoporosis. Degenerative changes are identified the bilateral sacroiliac and hip joints as discussed above.
[2018-04-17 15:50] VITALS: BP 164/70; PULSE 59; RESP 16; TEMP 97.5
== END 2018-04-17 17:53 ==
LOC: H.ER 04:01 → H.ERHOLD 06:35 → H.TEL 09:11
PROVIDERS: ADMIT Internal Medicine; ATTEND Internal Medicine
DX: S06.5X0A Traumatic subdural hemorrhage without loss of consciousness, initial encounter (principal); S01.01XA Laceration without foreign body of scalp, initial encounter; D53.9 Nutritional anemia, unspecified; I12.9 Hypertensive chronic kidney disease with stage 1 through stage 4 chronic kidney disease, or unspecified chronic kidney disease; N18.9 Chronic kidney disease, unspecified; N39.0 Urinary tract infection, site not specified; F03.90 Unspecified dementia, unspecified severity, without behavioral disturbance, psychotic disturbance, mood disturbance, and anxiety; F10.10 Alcohol abuse, uncomplicated; R26.9 Unspecified abnormalities of gait and mobility; E78.5 Hyperlipidemia, unspecified; M47.9 Spondylosis, unspecified; Z91.81 History of falling; W06.XXXA Fall from bed, initial encounter; Z86.73 Personal history of transient ischemic attack (TIA), and cerebral infarction without residual deficits; Z87.440 Personal history of urinary (tract) infections; Z87.891 Personal history of nicotine dependence; Y92.122 Bedroom in nursing home as the place of occurrence of the external cause
CPT/HCPCS: 70450; 71045; 72125; 72170; 80053; 85025; 85610; 85730; 86850; 86900; 99285; G0378; J0696